=== PATIENT | female | born 1990 | race Caucasian/White ===

== ENCOUNTER 2025-05-07 13:45 | Outpatient (OUT) | payer OTHER, SELFPAY ==
--- NOTE | 2025-05-07 13:57 | US_ITS ---
The [address] [address] Patient Name: SHERLYN OSWALD MRN: [id number] date: 1990 Sex: F Assigned Patient Location: US Current Patient Location: US Accession/Order Number: [id number] Exam Date: 05/07/2025 13:58 Report Date: 05/07/2025 14:50 At the request of: JACK ANDERSON DO Procedure: US OB transvaginal OB ultrasound. Reason for exam:Positive urine test. Comparison:None Technique: Transvaginal imaging of the gravid uterus was obtained. Findings: Gestational sac is seen within the endometrial canal with pole noted measuring 5 mm corresponding to a gestational age of 6 weeks 1 day. No heart rate is identified. MONICO 12/15/2025. A small adjacent subchorionic hemorrhage is present measuring 2.1 cm. Both ovaries are identified and appear unremarkable with a corpus luteum involving the left ovary. US/US OB transvaginal Impression: Gestational sac is seen within the endometrial canal with pole noted measuring 6 weeks 1 day by CRL. MONICO 12/15/2025. No heart rate is identified. Correlation with beta-hCG trend repeat ultrasound is suggested to confirm viability Impression dictated by: Naren Dias Jr., D.O. 05/07/2025 2:50 PM Dictation Location: [place] [address] Electronically authenticated by: [id number] Y Date: 05/07/2025 14:50
== END 2025-05-07 13:46 | disposition home or self-care (01) ==
LOC: US 13:48
PROVIDERS: Visit Provider Obstetrics & Gynecology
DX: Z32.01 Encounter for pregnancy test, result positive (principal); N92.6 Irregular menstruation, unspecified; Z3A.01 Less than 8 weeks gestation of pregnancy
CPT/HCPCS: 76817

== ENCOUNTER 2025-05-15 10:03 | Outpatient (OUT) | payer OTHER, SELFPAY ==
--- OUTSIDE RECORDS SUMMARY | 2025-05-13 14:00 | XMS_ITS | Encounter Summary ---
Author Organization [facility] Address [address] [place] [address] Care Team Providers Care Revenue Inspector Name Role Phone Amadou Millan MD Primary Care Provider [phone] Encounter Details Date Type Department Care Team (Latest Contact Info) Description 05/13/2025 2:00 PM EDT Ancillary Procedure [facility] [address] [place] [address] [place] [address] Missed menses; Positive urine test ([facility] Social History Tobacco Use Types Packs/Day Years Used Date Smoking Tobacco: Never Assessed Comments Unknown Sex and Gender Information Value Date Recorded Sex Assigned at Not on file Legal Sex Female 6:34 PM EDT Gender Identity Not on file Sexual Orientation Not on file documented as of this encounter Plan of Treatment Not on file documented as of this encounter Procedures Procedure Name Priority Date/Time Associated Diagnosis Comments OB TRANSVAGINAL Routine 05/13/2025 3: 10 PM EDT Missed menses Positive urine test ([facility]) documented in this encounter Results * US OB transvaginal (05/13/2025 3:10 PM EDT) Anatomical Region Laterality Modality Body Ultrasound 05/14/2025 12:5 2 PM EDT Impressions 05/14/2025 1:18 PM EDT No evidence of cardiac activity, single pole and gestational sac. Correlate with beta hCG findings, CONCRETE STONE FINISHER consultation. TRANSCRIBED BY: ELECTRONICALLY SIGNED BY: Naren Malik MD Narrative 05/14/2025 1:18 PM EDT FINDINGS: Comparison made with prior examination of May 07, 2025. Persistent intrauterine gestational sac with a limited decidual reaction and a single pole, crown rump length 3 mm which would suggest a 6 week and 0 day gestational age. No cardiac activity however is identified. Overall size demonstrates minimal change from 6 days earlier. Closed internal cervical os and cervix. Bilateral follicular ovaries. No pelvic fluid or mass. Procedure Note Naren Malik MD - 05/14/2025 FINDINGS: Comparison made with prior examination of May 07, 2025. Persistent intrauterine gestational sac with a limited decidual reactionand a single pole, crown rump length 3 mm which would suggest a 6week and 0 day gestational age. No cardiac activity however is identified.Overall size demonstrates minimal change from 6 days earlier. Closed internal cervical os and cervix. Bilateral follicular ovaries. No pelvic fluid or mass. IMPRESSION: No evidence of cardiac activity, single pole and gestational sac.Correlate with beta hCG findings, CONCRETE STONE FINISHER consultation. TRANSCRIBED BY: ELECTRONICALLY SIGNED BY: Naren Malik MD us Mars Jacque DO IMG OB US PROCEDURES Final Resul t documented in this encounter Visit Diagnoses Diagnosis Missed menses Positive urine test ([facility]) documented in this encounter Care Teams Revenue Inspector Relationship Specialty Start Date End Date Amadou Millan MD [address] [place] [address] PCP - General Internal Medicine 05/13/25 documented as of this encounter
--- OUTSIDE RECORDS SUMMARY | 2025-05-15 10:07 | XMS_ITS | Encounter Summary ---
Author Organization [facility] Address [address] [place] [address] Care Team Providers Care Brass Molder Name Role Phone Unavailable Primary Care Provider Unavailabl e Encounter Details Date Type Department Care Team (Late st Contact Info) Description 05/07/2025 Clinisync Result Encounter [facility] Department Unsolicited Jack Santillan DO [address] [place] [address] [place] [address] Social History Tobacco Use Types Packs/Day Years [...] Procedure Name Priority Date/Time Associated Diagnosis Comments US OB TRANSVAGINAL 05/07/2025 2: 50 PM EDT documented in this encounter Results * US OB TRANSVAGINAL (05/07/2025 2:50 PM EDT) Anatomical Region Laterality Modality Other 05/07/2025 2:50 PM EDT Narrative 05/07/2025 2:53 PM EDT The [address] [address] Ultrasound Report Signed Patient: SHERLYN WISE MR#: [id number] : 1990 Acct:[id number] Age/Sex: 34 / F ADM Date: 05/07/25 Loc: US Attending Dr: Jack Santillan D.O. Ordering Physician: Jack Santillan D.O. Date of Service: 05/07/25 Procedure(s): US OB transvaginal Accession Number(s): [id number] cc: Jack Santillan D.O.; Physician,Non-Staff Kadi The [address] [address] Patient Name: SHERLYN WISE MRN: [id number] date: 1990 Sex: F Assigned Patient Location: US Current Patient Location: US Accession/Order Number: [id number] Exam Date: 05/07/2025 13:58 Report Date: 05/07/2025 14:50 At the request of: JACK SANTILLAN DO Procedure: US OB transvaginal OB ultrasound. Reason for exam:Positive urine test. Comparison:None Technique: Transvaginal imaging of the gravid uterus was obtained. Findings: Gestational sac is seen within the endometrial canal with pole noted measuring 5 mm corresponding to a gestational age of 6 weeks 1 day. No heart rate is identified. MONICO 12/15/2025. A small adjacent subchorionic hemorrhage is present measuring 2.1 cm. Both ovaries are identified and appear unremarkable with a corpus luteum involving the left ovary. US/US OB transvaginal Impression: Gestational sac is seen within the endometrial canal with pole noted measuring 6 weeks 1 day by CRL. MONICO 12/15/2025. No heart rate is identified. Correlation with beta-hCG trend repeat ultrasound is suggested to confirm viability Impression dictated by: Naren Dias Jr., D.O. 05/07/2025 2:50 PM Dictation Location: [place] [address] Electronically authenticated by: [id number] Y Date: 05/07/2025 14:50 Dictated By: Naren Dias M.D. Signed By: 05/07/25 1453 DD/ 1450 TD/TT: Lunchroom Supervisor: Procedure Note Radiology, Radiologist, - 05/07/[address] [address] Ultrasound Report Signed Patient: SHERLYN WISEMR#: [id number] : 1990Acct:[id number] Age/Sex: 34 / FADM Date: 05/07/25 Loc: US Attending Dr: Jack Santillan D.O. Ordering Physician: Jack Santillan D.O. Date of Service: 05/07/25 Procedure(s): US OB transvaginal Accession Number(s): [id number] cc: Jack Santillan D.O.; Physician,Non-Staff [place] [id number] Patient Name: SHERLYN WISE MRN: [id number] date: 1990 Sex: F Assigned Patient Location: US Current Patient Location: US Accession/Order Number: [id number] Exam Date: 05/07/2025 13:58 Report Date: 05/07/2025 14:50 At the request of: JACK SANTILLAN DO Procedure: US OB transvaginal OB ultrasound. Reason for exam:Positive urine test. Comparison:None Technique: Transvaginal imaging of the gravid uterus was obtained. Findings: Gestational sac is seen within the endometrial canal with pole noted measuring 5 mm corresponding to a gestational age of 6 weeks 1 day. Nofetal heart rate is identified. MONICO 12/15/2025. A small adjacent subchorionic hemorrhage is present measuring 2.1 cm. Both ovaries are identified and appear unremarkable with a corpus luteum involving the left ovary. US/US OB transvaginal Impression: Gestational sac is seen within the endometrial canal with pole noted measuring 6 weeks 1 day by CRL. MONICO 12/15/2025. No heart rate is identified. Correlation with beta-hCG trend repeat ultrasound issuggested to confirm viability Impression dictated by: Naren Dias Jr., D.O. 05/07/2025 2:50 PM Dictation Location: [place] [address] Electronically authenticated by: [id number] Y Date: 4:50 Dictated By: Naren Dias M.D. Signed By:05/07/25 1453 DD/ 1450 TD/TT: Lunchroom Supervisor: us Jack Jacque DO [facility] Final Result documented in this encounter Visit Diagnoses Not on filedocumented in this encounter
--- OUTSIDE RECORDS SUMMARY | 2025-05-15 10:07 | XMS_ITS | Encounter Summary ---
Author Organization [facility] Address [address] [place] [address] Care Team Providers Care Marketing Development Manager Name Role Phone Unavailable Primary Care Provider Unavailabl e Encounter Details Date Type Department Care Team (Late st Contact Info) Description 05/07/2025 Telephone [facility] [address] [place] [address] Mars Santillan DO [address] [place] [address] [place], [place] [id number] Social History Tobacco Use Types Packs/Day Years Used Date Smoking Tobacco: Never Assessed Comments Unknown Sex and Gender Information Value Date Recorded Sex Assigned at Not on file Legal Sex Female 6:34 PM EDT Gender Identity Not on file Sexual Orientation Not on file documented as of this encounter Miscellaneous Notes * Telephone Encounter - Rebeka Ashford LPN - 05/07/2025 2:37 PM EDT Patient LMP shows patient should be 8 w 2 day ultrasound shows 6 w 2 days. No FHR but pole. We will repeat Ultrasound in 1 week. Patient is aware of orders and scheduling for repeat. documented in this encounter Plan of Treatment Not on file documented as of this encounter Results * US OB transvaginal (05/13/2025 3:10 PM EDT) Anatomical Region Laterality Modality Body Ultrasound 05/14/2025 12:5 2 PM EDT Impressions 05/14/2025 1:18 PM EDT No evidence of cardiac activity, single pole and gestational sac. Correlate with beta hCG findings, PRICER consultation. TRANSCRIBED BY: ELECTRONICALLY SIGNED BY: Naren [...] and gestational sac.Correlate with beta hCG findings, PRICER consultation. TRANSCRIBED BY: ELECTRONICALLY SIGNED BY: Naren Malik MD us Mars Santillan DO [facility] OB US PROCEDURES Final Resul t documented in this encounter Visit Diagnoses Diagnosis Missed menses Positive urine test ([facility]) Missed menses Positive urine test ([facility]) documented in this encounter
--- NOTE | 2025-05-15 10:31 | XR_ITS ---
[address] [address] Patient Name: SHERLYN OSWADL MRN: [id number] date: 1990 Sex: F Assigned Patient Location: [facility] Current Patient Location: [facility] Accession/Order Number: [id number] Exam Date: 05/15/2025 10:43 Report Date: 05/15/2025 11:15 At the request of: JACK ANDERSON DO Procedure: XR chest 2V Chest 2 views CLINICAL HISTORY: Preop exam COMPARISON: None FINDINGS: Heart normal size. Lungs are clear. No free air. XR/XR chest 2V IMPRESSION: NO ACUTE CARDIOPULMONARY ABNORMALITY. Impression dictated by: Vania Ni Jr.OJerson 05/15/2025 11:15 AM Dictation [facility] Electronically authenticated by: [id number] Y Date: 05/15/2025 11:15
--- NOTE | 2025-05-15 10:52 | PM.PRESUREVA ---
History of Present Illness History of Present Illness Chief complaint: MISSED AB Narrative: Ms. Xochitl Wise is a pleasant 34-year-old female who presents for scheduled D&C with suction for missed AB surgery scheduled on 05/18/[address] Mars Santillan Review of Systems ROS Narrative REVIEW OF SYSTEMS: Negative except as stated in HPI, ten or more systems reviewed. Constitutional: No fever, chills, weakness ENT: No sore throat or epistaxis Cardiovascular: No edema, chest pain, palpitations, or activity intolerance Respiratory: No shortness of breath, cough, or wheezing Musculoskeletal: No joint pain or swelling Gastrointestinal: No abdominal pain, constipation, diarrhea, or vomiting Genitourinary: No dysuria or hematuria, reports vaginal spotting Neurological: No numbness, tingling, weakness, or headache Psychiatric: No mood changes PFSH PFSH Medical History (Updated 05/15/25 @ 10:54 by Birdie Cordero) Anxiety ?F41.9 - Anxiety disorder, unspecified (ICD-10) Bronchitis ?J40 - Bronchitis, not specified as acute or chronic (ICD-10) Seasonal allergies ?J30.2 - Other seasonal allergic rhinitis (ICD-10) Heartburn ?R12 - Heartburn (ICD-10) GERD (gastroesophageal reflux disease) ?K21.9 - Gastro-esophageal reflux disease without esophagitis (ICD-10) Surgical History (Updated 05/15/25 @ 10:27 by Birdie Cordero) History of cholecystectomy ?Z90.49 - Acquired absence of other specified parts of digestive tract (ICD-10) Family History (Updated 05/15/25 @ 10:23 by Birdie Cordero) Other Family history of Alzheimer's disease Family history of bone cancer Family history of brain cancer Family history of breast cancer Family history of diabetes mellitus Social History (Updated 05/15/25 @ 10:20 by Birdie Cordero) Within the past year, how often did you have a drink containing alcohol: never Score interpretation: A score less than 3 is consistent with normal alcohol consumption. Do you use any of these nicotine containing products: vaping products Non-prescribed substance use: denies use Previous occupational history: [employer] Highest level of school completed/degree received: high school graduate Meds Home Medications and Allergies Home Medications ?Medication ?Instructions ?Recorded ?Confirmed ?Type No Known Home Medications 05/15/25 05/15/25 History Allergies Allergy/AdvReac Type Severity Reaction Status Date / Time aspirin Allergy Intermediate Anaphylaxis Verified 05/15/25 10:16 Exam Narrative Exam Narrative: Constitutional: Awake, alert, comfortable, well-appearing, nontoxic, interactive, vital signs as charted Head: Normocephalic, atraumatic Eyes: Conjunctiva and lids normal to inspection, pupils normal ENT: Tympanic membranes pearly denton, nonerythematous, noninjected, naris patent, posterior oropharynx clear, oral mucosa moist Neck: Supple, normal appearance, normal range of motion, no meningeal signs, no lymphadenopathy Respiratory: No respiratory distress, breath sounds clear Cardiovascular: Regular rate and rhythm, strong and regular heart tones Abdomen: Nontender, normal bowel sounds, soft, no CVA tenderness Musculoskeletal: Normal gait, no swelling or edema Skin: No rashes or induration, no lesions, only visible skin inspected Neuro: No neurological deficits, normal sensation Psychiatric: Oriented ?3, normal affect Assessment and Plan Assessment and Plan (1) Missed : Plan Suction D&C scheduled 05/18/[address] Mars Santillan
== END 2025-05-15 10:04 | disposition home or self-care (01) ==
LOC: PST 10:05
PROVIDERS: Visit Provider Obstetrics & Gynecology
DX: Z01.810 Encounter for preprocedural cardiovascular examination (principal); Z01.812 Encounter for preprocedural laboratory examination; Z01.818 Encounter for other preprocedural examination; O02.1 Missed abortion
CPT/HCPCS: 36415; 71046; 86850; 86900; 86901; G0463

== ENCOUNTER 2025-05-17 13:46 | Emergency (ER) | payer OTHER, SELFPAY ==
--- OUTSIDE RECORDS SUMMARY | 2009-08-24 19:37 | XMS_ITS | Encounter Summary ---
Author Organization [facility] Address [address], [address] [place] [address] Care Team Providers Care Educational Manager Name Role Phone Unavailable Primary Care Provider Unavailabl e Encounter Details Date Type Department Care Team (Late st Contact Info) Description 08/24/2009 6:37 PM [facility] Hospital Encounter [facility] Department [address] [place] [address] Social History Tobacco Use Types Packs/Day Years Used Date Smoking Tobacco: Never Smokeless Tobacco: Never Alcohol Use Standard Drinks/Week Comments No 0 (1 standard drink = 0.6 oz pur e alcohol) AUDIT-C Answer Date Recorded Q1: How often do you have a drink containing alcohol? Never 07/22/2024 Q2: How many drinks containi ng alcohol do you have on a typical day when you are drinking? Patient does not drink Q3: How often do you have si x or more drinks on one occasion? Never 07/22/2024 Overall Financial Resource Strain (CARDIA) Answe r Date Recorded How hard is it for you to pa y for the very basics like food, housing, medical care, and heating? Not hard at all 01/02/2023 PHQ-2 Answer Date Recorded PHQ-9 Total Score 0 03/27/2025 PRAPARE - Transportation Answer Date Re corded Lack of Transportation (Medical) Not on file 01/02/2023 In the past 12 months, has l ack of transportation kept you from meetings, work, or from getting things needed for daily living? No 01/02/2023 Housing Stability Vital Sign Answer Durga e Recorded Unable to Pay for Housing in the Last Year Not o n file 01/02/2023 Number of Places Lived in the Last Year Not on f ile 01/02/2023 In the last 12 months, was t here a time when you did not have a steady place to sleep or slept in a care home (including now)? No 01/02/2023 Housing Stability Vital Sign Answer Durga e Recorded In the last 12 months, was t here a time when you were not able to pay the mortgage or rent on time? No 03/27/2025 In the past 12 months, how m any times have you moved where you were living? 0 03/27/2025 At any time in the past 12 m [facility], were you homeless or living in a care home (including now)? No 03/27/2025 Hunger Vital Sign Answer Date Recorded Within the past 12 months, y ou worried that your food would run out before you got the money to buy more. Never true 03/27/20 25 Within the past 12 months, t he food you bought just didn't last and you didn't have money to get more. Never true 03/27/2025 PRAPARE - Transportation Answer Date Re corded In the past 12 months, has l ack of transportation kept you from medical appointments or from getting medications? No 02/28 In the past 12 months, has l ack of transportation kept you from meetings, work, or from getting things needed for daily living? No 03/27/2025 [facility] Utilities Answer Date Recorded In the past 12 months has th e electric, gas, oil, or water company threatened to shut off services in your home? No 03/27/2025 Interpersonal Safety Domain Source: IP Abuse Scr eening Answer Date Recorded Physical abuse Denies 07/22/2024 Verbal abuse Denies 07/22/2024 Emotional abuse Denies 07/22/2024 Financial abuse Denies 07/22/2024 Sexual abuse Denies 07/22/2024 Education Answer Date Recorded What is the highest level of school you have completed or the highest degree you have received? High school graduate 09/28/2020 Comments No Sex and Gender Information Value Date Recorded Sex Assigned at Not on file Legal Sex Female 10:09 AM EST Gender Identity Not on file Sexual Orientation Not on file COVID-19 Exposure Response Date Recorded In the last 10 days, have yo u been in contact with someone who was confirmed or suspected to have Coronavirus/COVID-19? No / Unsure 03/20/2022 4:13 PM EDT documented as of this encounter Functional Status documented as of this encounter Plan of Treatment Not on file documented as of this encounter Visit Diagnoses Not on filedocumented in this encounter Additional Health Concerns Infection Onset Date Last Indicated Resolved Time COVID-19 (Rule Out) 06/23/2020 06/23/2020 06/26/20 20 1:06 AM EST COVID-19 06/23/2020 06/23/2020 07/07/2020 9:29 PM EST documented as of this encounter
--- OUTSIDE RECORDS SUMMARY | 2015-03-25 09:45 | XMS_ITS | Encounter Summary ---
Author Organization [facility] Address [address], [address] [place] [address] Care Team Providers Care Design Draftsman Name Role Phone Unavailable Primary Care Provider Unavailabl e Encounter Details Date Type Department Care Team (Late st Contact Info) Description 03/25/2015 9:45 AM EDT Hospital Encounter [facility] Physical Therapy [address] [place] [address] Teddy Mcdaniels MD [address], [place] [address] Raine Slade, PT Social History Tobacco Use Types Packs/Day Years [...] place to sleep or slept in a penitentiary (including now)? No 01/02/2023 Housing Stability Vital Sign Answer Durga e Recorded In the last 12 months, was t here a time when you were not able to pay the mortgage or rent on time? No 03/27/2025 In the past 12 months, how m any times have you moved where you were living? 0 03/27/2025 At any time in the past 12 m [facility], were you homeless or living in a penitentiary (including now)? No 03/27/2025 Hunger Vital Sign [...] things needed for daily living? No 03/27/2025 [facility] Utilities Answer Date Recorded In the [...]
--- OUTSIDE RECORDS SUMMARY | 2025-05-13 14:00 | XMS_ITS | Encounter Summary ---
Author Organization [facility] Address [address] [place] [address] Care Team Providers Care Turning Machine Operator Helper Name Role Phone Amadou Millan MD Primary Care Provider [phone] Encounter Details Date Type Department Care Team (Latest Contact Info) Description 05/13/2025 2:00 PM EDT Ancillary Procedure [facility] [address] [place] [address] [place] [address] Missed menses; Positive urine test ([facility]) Social History Tobacco Use Types Packs/Day Years [...] PM EDT Missed menses Positive urine test ([facility]) documented in this encounter Results * US OB transvaginal (05/13/2025 3:10 PM EDT) Anatomical Region Laterality Modality Body Ultrasound 05/14/2025 12:5 2 PM EDT Impressions 05/14/2025 1:18 PM EDT No evidence of cardiac activity, single pole and gestational sac. Correlate with beta hCG findings, MACHINE CRATER consultation. TRANSCRIBED BY: ELECTRONICALLY SIGNED BY: Naren [...] and gestational sac.Correlate with beta hCG findings, MACHINE CRATER consultation. TRANSCRIBED BY: ELECTRONICALLY SIGNED BY: Naren Malik MD us Mars Jacque DO IMG OB US PROCEDURES Final Resul t documented in this encounter Visit Diagnoses Diagnosis Missed menses Positive urine test ([facility]) documented in this encounter Care Teams Turning Machine Operator Helper Relationship Specialty Start Date End Date Amadou Millan MD [address] [place] [address] PCP - General Internal Medicine 05/13/25 documented as of this encounter
--- OUTSIDE RECORDS SUMMARY | 2025-05-17 13:54 | XMS_ITS | Clinical Summary ---
Author Organization [facility] Address [address] [place] [address] Care Team Providers Care Deburrer Strip Name Role Phone Amadou Millan MD Primary Care Provider [phone] Allergies Active Allergy Reactions Criticality Noted Date Comments Aspirin Other 05/13/2025 Encounters Date Type Department Care Team Description 05/13/2025 2:00 PM EDT Ancillary Procedure [facility] [address] [place] [address] Missed menses; Positive urine test ([facility]) 05/07/2025 Clinisync Result Encounter [facility] External Department Unsolicited Jack Santillan DO 05/07/2025 Telephone [facility] [address] [place] [address] Jack Santillan DO from Last 3 Months Social History Tobacco Use Types Packs/Day Years Used Date Smoking Tobacco: Never Assessed Comments Unknown Sex and Gender Information Value Date Recorded Sex Assigned at Not on file Legal Sex Female 6:34 PM EDT Gender Identity Not on file Sexual Orientation Not on file Plan of Treatment Not on file Procedures Procedure Name Priority Date/Time Associated Diagnosis Comments US OB TRANSVAGINAL Routine 05/13/2025 3: 10 PM EDT Missed menses Positive urine test ([facility]) US OB TRANSVAGINAL 05/07/2025 2: 50 PM EDT from Last 3 Months Results * US OB transvaginal (05/13/2025 3:10 PM EDT) Anatomical Region Laterality Modality Body Ultrasound 05/14/2025 12:5 2 PM EDT Impressions 05/14/2025 1:18 PM EDT No evidence of cardiac activity, single pole and gestational sac. Correlate with beta hCG findings, CIRCULAR DISTRIBUTOR consultation. TRANSCRIBED BY: ELECTRONICALLY SIGNED BY: Naren [...] and gestational sac.Correlate with beta hCG findings, CIRCULAR DISTRIBUTOR consultation. TRANSCRIBED BY: ELECTRONICALLY SIGNED BY: Naren Malik MD us Jack Santillan DO IMG OB US PROCEDURES Final Resul t * US OB TRANSVAGINAL (05/07/2025 2:50 PM EDT) Anatomical Region Laterality Modality Other 05/07/2025 2:50 PM EDT Narrative 05/07/2025 2:53 [place] [address] Ultrasound Report Signed Patient: SHERLYN WISE MR#: [id number] : 1990 Acct:[id number] Age/Sex: 34 / F ADM Date: 05/07/25 Loc: US Attending Dr: Jack Santillan D.O. Ordering Physician: Jack Santillan D.O. Date of Service: 05/07/25 Procedure(s): US OB transvaginal Accession Number(s): [id number] cc: Jack Santillan D.O.; Physician,Non-Staff Kadi The [address] [address] Patient Name: SHERLYN WISE MRN: [id number] date: 1990 Sex: F Assigned Patient Location: US Current Patient Location: US Accession/Order Number: [id number] Exam Date: 05/07/2025 13:58 Report Date: 05/07/2025 [...] Jr., D.O. 05/07/2025 2:50 PM Dictation Location: [place] [address] Electronically authenticated by: [id number] Y Date: 05/07/2025 14:50 Dictated By: Naren Dias M.D. Signed By: 05/07/25 1453 DD/ 145 TD/TT: Adjunct Phlebotomy Instructor: Procedure Note Radiology, Radiologist, - 05/07/[address] [address] Ultrasound Report Signed Patient: SHERLYN WISEMR#: [id number] : 1990Acct:[id number] Age/Sex: 34 / FADM Date: 05/07/25 Loc: US Attending Dr: Jack Santillan D.O. Ordering Physician: Jack Santillan D.O. Date of Service: 05/07/25 Procedure(s): US OB transvaginal Accession Number(s): [id number] cc: Jack Santillan D.O.; Physician,Non-Staff MKerri [place] [id number] Patient Name: SHERLYN WISE MRN: [id number] date: 1990 Sex: F Assigned Patient Location: US Current Patient Location: US Accession/Order Number: [id number] Exam Date: 05/07/2025 13:58 Report Date: 05/07/2025 [...] Jr., D.O. 05/07/2025 2:50 PM Dictation Location: [place] [address] Electronically authenticated by: [id number] Y Date: 4:50 Dictated By: Naren Dias M.D. Signed By:05/07/25 1453 DD/ 1450 TD/TT: Adjunct Phlebotomy Instructor: Jack Santillan DO [facility] Final Result from Last 3 Months Insurance [employer] MEDICA[employer] Care Teams Deburrer Strip Relationship Specialty Start Date End Date Amadou Millan MD [address] [place] [address] PCP - General Internal Medicine 05/13/25
--- OUTSIDE RECORDS SUMMARY | 2025-05-17 13:54 | XMS_ITS | Clinical Summary ---
Author Organization [facility] Address [address], [address] [place] [address] Care Team Providers Care Cargo Agent Name Role Phone Amadou Millan MD Primary Care Provider [phone] Allergies Active Allergy Reactions Criticality Noted Date Comments Aspirin Other (See Comments) 12/23/2016 States mother has severe reaction to aspirin so she has avoided it herself. Medications topiramate (TOPAMAX) 25 MG tabletIndication s:Migraine without aura and without status migrainosus, not intractable Take 1 tablet by mouth nightly 60 tablet 3 5 Active butalbital-aceta minophen-caffein e (FIORICET, ESGIC) 50-325-40 MG per tabletIndication s:Migraine without aura and without status migrainosus, not intractable Take 1 tablet by mouth every 6 hours as needed for Headaches 60 tablet 3 5 Active busPIRone (BUSPAR) 7.5 MG tabletIndication s:Anxiety TAKE 1 TABLET BY MOUTH TWICE DAILY 180 tablet 1 5 Active Active Problems Problem Noted Date Diagnosed Date Anxiety disorder 01/27/2021 Cholecystitis with cholelithiasis Encounters Date Type Department Care Team Description 04/07/2025 Refill [facility] [address] [place] [address] Amadou Millan MD Medication Refill 03/27/2025 11:30 AM EDT Office Visit [facility] [address] [place] [address] Amadou Millan MD Migraine without aura and without status migrainosus, not intractable (Primary Dx) 03/27/2025 Abstract [facility] Care [address] [place] [address] Amadou Millan MD from Last 3 Months Immunizations Immunization Administration Dates Next Due TDaP, ADACEL (age 10y-64y), BOOSTRIX (age 10y+), IM, 0.5mL 02/24/2012 Family History Medical History Relation Name Comments No Known Problems Father Other Maternal Aunt FACTOR FIVE Other Maternal Grandmother FACTOR 12 Other Maternal Great Grandmother F ACTOR SEVEN No Known Problems Mother Other Other Great Great Grandma FACTOR N INE Relation Name Status Comments Father Alive Maternal Aunt Maternal Grandmother Maternal Great Grandmother Mother Alive Other Great Great Grandma Social History Tobacco Use Types Packs/Day Years Used Date Smoking Tobacco: Never Smokeless Tobacco: Never Tobacco Cessation:Counseling Given: Not Answered Alcohol Use Standard Drinks/Week Comments No 0 [...] place to sleep or slept in a snf (including now)? No 01/02/2023 Housing Stability Vital Sign Answer Durga e Recorded In the last 12 months, was t here a time when you were not able to pay the mortgage or rent on time? No 03/27/2025 In the past 12 months, how m any times have you moved where you were living? 0 03/27/2025 At any time in the past 12 m [facility], were you homeless or living in a snf (including now)? No 03/27/2025 Hunger Vital Sign [...] things needed for daily living? No 03/27/2025 [facility] Utilities Answer Date Recorded In [...] on file Sexual Orientation Not on file Last Filed Vital Signs Vital Sign Reading Time Taken Comments Blood Pressure 112/77 03/27/2025 11:23 AM EDT Pulse 88 03/27/2025 11:23 AM EDT Temperature 36.9 C (98.5 F) 07/22/2024 1:54 AM EST Respiratory Rate 18 03/27/2025 11:23 AM EDT Oxygen Saturation 99% 03/27/2025 11:23 AM EDT Inhaled Oxygen Concentration - - Weight 99.9 kg (220 lb 4.8 oz) 07/22/2024 1:54 A M EST Height 160 cm (5' 3 ) 03/27/2025 11:23 AM EDT Body Mass Index 39.02 07/22/2024 1:54 AM EST Plan of Treatment Health Maintenance Due Date Last Done Comments HIV screen 2006 Hepatitis C screen 2009 Hepatitis B vaccine (1 of 3 - 19+ 3-dose series) 2010 Pap smear 2012 Cervical cancer screen 2021 HPV (without or with Pap) 2021 DTaP/Tdap/Td vaccine (2 - Td or Tdap) 02/23/2022 02/24/2012 Flu vaccine (#1) 02/27/2025 COVID-19 Vaccine (1 - 2023-2 5 season) 2025 Depression Screen 03/27/2026 03/27/2025, 03/27/2025 HPV vaccine (No Doses Required) Completed Hepatitis A vaccine Aged Out No longe r eligible based on patient's age to complete this topic Hib vaccine Aged Out No longer eligi ble based on patient's age to complete this topic Meningococcal (ACWY) vaccine Aged Out No longer eligible based on patient's age to complete this topic Meningococcal B vaccine Aged Out No l onger eligible based on patient's age to complete this topic Pneumococcal 0-49 years Vaccine Aged Out No longer eligible based on patient's age to complete this topic Polio vaccine Aged Out No longer elig ible based on patient's age to complete this topic Varicella vaccine Discontinued Medical Devices Implanted Type Area Brick Or Block Maker Device Identifier Shelf Expiration Date Model / Serial / Lot Santosh Hem-O-Coral Implanted:Qty: 1 on 01/08/2019 by Chad Felix MD at [facility] 12/24/2022 [id number] / / [id number] Insurance [employer] Member Subscriber Plan / Payer ( fective 2016-Present) Name:Xochitl Wise Relation to Subscriber:Self Name:Xochitl Wise Payer ID:[id number] (NAIC) Group ID:Not on file Type:Not on file Address: [place] [phone] Advance Directives * Full Code (Latest Code Status on File) Date Activated Date Inactivated Comments 01/08/2019 12:37 PM 01/08/2019 5:52 PM * Full Code Date Activated Date Inactivated Comments 01/08/2019 8:53 AM 01/08/2019 12:37 PM Care Teams Cargo Agent Relationship Specialty Start Date End Date Amadou Millan MD [address] [place] [address] PCP - General Internal Medicine 09/28/20
--- OUTSIDE RECORDS SUMMARY | 2025-05-17 13:54 | XMS_ITS | Encounter Summary ---
Author Organization [facility] Address [address] [place] [address] Care Team Providers Care Metal Mold Dresser Name Role Phone Unavailable Primary Care Provider Unavailabl e Encounter Details Date Type Department Care Team (Late st Contact Info) Description 05/07/2025 Telephone [facility] [address] [place] [address] Mars Santillan DO [address] [place], [place] [id number] Social History Tobacco Use Types Packs/Day Years [...] gestational sac. Correlate with beta hCG findings, SALON DESIGNER consultation. TRANSCRIBED BY: ELECTRONICALLY SIGNED BY: Naren [...] and gestational sac.Correlate with beta hCG findings, SALON DESIGNER consultation. TRANSCRIBED BY: ELECTRONICALLY SIGNED BY: Naren Malik MD us Mars Santillan DO [facility] OB US PROCEDURES Final Resul t documented in this encounter Visit Diagnoses Diagnosis Missed menses Positive urine test ([facility]) Missed menses Positive urine test ([facility]) documented in this encounter
[2025-05-17 13:55] VITALS: BP 143/76; PULSE 84; TEMP 36.9; O2SAT 98; BMI 34.4
--- NOTE | 2025-05-17 14:11 | ED_ITS ---
HPI HPI - General Adult General Chief complaint: OB/Uterine Contractions Stated complaint: VAGINAL BLEED Time Seen by Provider: 05/17/25 14:08 Source: patient Mode of arrival: walk-in History of Present Illness HPI narrative: 34-year-old female presents to the emergency department for vaginal bleeding. She found out last week she is having a miscarriage and she is scheduled for D&C tomorrow. The bleeding became heavier today and she was passing some clots so she came in. She has some abdominal cramping. No fever. Related Data Home Medications ?Medication ?Instructions ?Recorded ?Confirmed No Known Home Medications 05/15/2504/29 Allergies Allergy/AdvReac Type Severity Reaction Status Date / Time aspirin Allergy Intermediate Anaphylaxis Verified 05/15/25 10:16 Review of Systems ROS Narrative A ten point review of systems is negative except as noted above. PFSH PFS Medical History (Updated 05/17/25 @ 17:49 by Yoan English MD) Anxiety ?F41.9 - Anxiety disorder, unspecified (ICD-10) Bronchitis ?J40 - Bronchitis, not specified as acute or chronic (ICD-10) Seasonal allergies ?J30.2 - Other seasonal allergic rhinitis (ICD-10) Heartburn ?R12 - Heartburn (ICD-10) GERD (gastroesophageal reflux disease) ?K21.9 - Gastro-esophageal reflux disease without esophagitis (ICD-10) Surgical History (Updated 05/15/25 @ 10:27 by Birdie Cordero) History of cholecystectomy ?Z90.49 - Acquired absence of other specified parts of digestive tract (ICD- 10) Family History (Updated 05/15/25 @ 10:23 by Birdie Cordero) Other Family history of Alzheimer's disease Family history of bone cancer Family history of brain cancer Family history of breast cancer Family history of diabetes mellitus Social History (Updated 05/15/25 @ 10:20 by Birdie Cordero) Within the past year, how often did you have a drink containing alcohol: never Score interpretation: A score less than 3 is consistent with normal alcohol consumption. Do you use any of these nicotine containing products: vaping products Non-prescribed substance use: denies use Previous occupational history: [employer] Highest level of school completed/degree received: high school graduate Little interest or pleasure in doing things: not at all Feeling down, depressed, or hopeless: not at all Exam Narrative Exam Narrative: Nurses note and vital signs reviewed General:The patient appears well and in no apparent distress. Skin:Warm, dry, no pallor noted.There is no rash noted. Head:Normocephalic, atraumatic Eye: Normal conjunctiva, no drainage Ears, Nose, Mouth, and Throat: oral mucosa is moist. Nares patent. Cardiovascular:Regular Rate and Rhythm Respiratory:Patient is in no distress, no accessory muscle use, lungs are clear to auscultation, no wheezing, rales or rhonchi Back:non-tender GI: Tenderness across the lower abdomen Musculoskeletal: The patient has no evidence of calf tenderness, no pitting edema, symmetrical pulses noted bilaterally Neurological:A&O, normal speech Psychiatric:Cooperative Constitutional Vital Signs, click to edit/add: Last Vital Signs Temp 98.5 F 05/17/25 13:55 Pulse 84 05/17/25 13:55 Resp 16 05/17/25 13:55 BP 143/76 H 05/17/25 13:55 Pulse Ox 98 05/17/25 13:55 O2 Del Method Room Air 05/17/25 13:55 Course Vital Signs Vital signs: Vital Signs Temperature 98.5 F 05/17/25 13:55 Pulse Rate 84 05/17/25 13:55 Respiratory Rate 16 05/17/25 13:55 Blood Pressure 143/76 H 05/17/25 13:55 Pulse Oximetry 98 05/17/25 13:55 Oxygen Delivery Method Room Air 05/17/25 13:55 Temperature 98.5 F 05/17/25 13:55 Pulse Rate 84 05/17/25 13:55 Respiratory Rate 16 05/17/25 13:55 Blood Pressure 143/76 H 05/17/25 13:55 Pulse Oximetry 98 05/17/25 13:55 Oxygen Delivery Method Room Air 05/17/25 13:55 Medical Decision Making MDM Narrative Medical decision making narrative: The patient has a hemoglobin of 10.1 and ultrasound shows some retained products of conception in the endometrial canal. Discussed with Dr. Santillan. The patient was given the option of D&C tomorrow versus allowing everything to pass and she prefers to have a D&C tomorrow. Should be discharged home. Treatment diagnosis and follow-up were discussed with the patient. Differential Diagnosis Differential Diagnosis: Incomplete miscarriage, complete miscarriage Lab Data Lab results reviewed: Yes I reviewed the patient's lab results Labs: Lab Results 05/17/25 Range/Units 14:15 WBC 13.6 H (4.0-11.0) 10^3/uL RBC 4.11 L (4.20-5.40) 10^6/uL Hgb 10.1 L (12.0-16.0) g/dL Hct 32.1 L (36.0-48.0) % MCV 78.1 L (81.0-99.0) fL MCH 24.6 L (26.7-34.0) pg MCHC 31.5 (29.9-35.2) g/dL RDW 16.4 H (11.0-15.0) % Plt Count 338 (150-450) 10^3/uL MPV 9.8 (9.5-13.5) fL Neut % (Auto) 81.0 H (43.0-75.0) % Lymph % (Auto) 14.7 L (20.5-60.0) % [place] % (Auto) 3.1 (1.7-12.0) % Eos % (Auto) 0.4 L (0.9-7.0) % Baso % (Auto) 0.6 (0.2-2.0) % Neut # (Auto) 11.0 H (1.4-6.5) 10^3/uL Lymph # (Auto) 2.0 (1.2-3.8) 10^3/uL [place] # (Auto) 0.4 (0.3-0.8) 10^3/uL Eos # (Auto) 0.1 (0.0-0.7) 10^3/uL Baso # (Auto) 0.1 (0.0-0.1) 10^3/uL Abs Immat Gran (auto) 0.03 (0.00-0.03) 10^3/uL Imm/Tot Granulo (auto) 0.2 (0.0-0.5) % Sodium 141 (136-145) mmol/L Potassium 3.4 L (3.5-5.1) mmol/L Chloride 107 (98-107) mmol/L Carbon Dioxide 22.0 (21.0-32.0) mmol/L Anion Gap 15.4 BUN 8.0 (7.0-18.0) mg/dL Creatinine 0.77 (0.55-1.02) mg/dL Est GFR ( Amer) >60 (>=60 mL/min/1.73m^2) Est GFR (Non-Af Amer) >60 (>=60 mL/min/1.73m^2) BUN/Creatinine Ratio 10.4 Glucose 122 H (74-106) mg/dL Calcium 8.6 (8.5-10.1) mg/dL Discharge Plan Discharge Chief Complaint: OB/Uterine Contractions Clinical Impression: Incomplete miscarriage Patient Disposition: Home, Self-Care Time of Disposition Decision: 17:49 Condition: Good Mode of Transportation: Private Vehicle Prescriptions / Home Meds: No Action No Known Home Medications Print Language: Ukrainian Instructions: Miscarriage (ED), Dilation and Curettage (DC) Referrals: DAVID RASHID MD [Primary Care Provider] - 1 week
[2025-05-17 14:27] LABS: Hematocrit 32.1 % (36.0-48.0); Hemoglobin 10.1 g/dL (12.0-16.0); Immature Granulocytes Abs Auto 0.03 10^3/uL (0.00-0.03); Immature Granulocytes Pct Auto 0.2 % (0.0-0.5); Lymphocytes Absolute Auto 2.0 10^3/uL (1.2-3.8); Mean Corpuscular HGB Conc 31.5 g/dL (29.9-35.2); Mean Corpuscular Hemoglobin 24.6 pg (26.7-34.0); Mean Corpuscular Volume 78.1 fL (81.0-99.0); Platelet Count 338 10^3/uL (150-450); Red Blood Count 4.11 10^6/uL (4.20-5.40); White Blood Count 13.6 10^3/uL (4.0-11.0)
[2025-05-17 14:37] LABS: Anion Gap 15.4; Blood Urea Nitrogen 8.0 mg/dL (7.0-18.0); Calcium 8.6 mg/dL (8.5-10.1); Carbon Dioxide 22.0 mmol/L (21.0-32.0); Chloride 107 mmol/L (98-107); Estimated GFR (African America >60 (>=60 mL/min/1.73m^2); Estimated GFR (Non-African Ame >60 (>=60 mL/min/1.73m^2); Glucose 122 mg/dL (74-106); Potassium 3.4 mmol/L (3.5-5.1); Sodium 141 mmol/L (136-145)
--- NOTE | 2025-05-17 15:17 | US_ITS ---
The [address] [address] Patient Name: SHERLYN OSWALD MRN: [id number] date: 1990 Sex: F Assigned Patient Location: ER Current Patient Location: ER Accession/Order Number: [id number] Exam Date: 05/17/2025 16:08 Report Date: 05/17/2025 17:19 At the request of: PRUDENCE NEAL MD Procedure: US OB transvaginal EXAMINATION TYPE: US OB transvaginal Grayscale, color scale Doppler, vascular duplex analysis of the bilateral ovaries DATE OF EXAM ORDERED: 05/17/2025 4:43 PM HISTORY: Miscarriage, bleeding, r/o retained products, COMPARISON: NONE TECHNIQUE: Realtime Transvaginal imaging was performed. Transvaginal imaging was utilized to better evaluate the ovaries and the endometrial stripe. Grayscale, color scale Doppler, vascular duplex analysis of the bilateral ovaries was performed to assess blood flow. FINDINGS: The cervix measures 3 cm in length. Endometrium:The endometrium measures 1.3 cm in thickness with an anechoic structure measuring 0.5 x 0.3 x 0.6 cm within the endometrial canal. Ovaries: There is a suspected corpus luteum cyst within the left ovary measuring 1.4 x 1.0 x 1.4 cm. Adjacent anechoic structures are noted along the left adnexa with the largest measuring 1.9 x 1.1 x 1.6 cm in greatest dimension possibly representing exophytic follicles. Right Ovary measurements: 3.3 x 2.2 x 2.3 cm Left Ovary measurements: 2.4 x 2.6 x 2.9 cm No abnormal adnexal mass is seen. No free fluid in the pelvic cul-de-sac. Vascular duplex analysis of the bilateral ovaries demonstrates normal blood flow without evidence of ovarian ischemia. US/US OB transvaginal IMPRESSION: The endometrium measures 1.3 cm in thickness with an anechoic structure measuring 0.5 x 0.3 x 0.6 cm within the endometrial canal. This presumably represents retained products of conception. There is a suspected corpus luteum cyst within the left ovary measuring 1.4 x 1.0 x 1.4 cm. Adjacent anechoic structures are noted along the left adnexa with the largest measuring 1.9 x 1.1 x 1.6 cm in greatest dimension possibly representing exophytic follicles. No evidence of ovarian ischemia. Impression dictated by: Aris Gillespie M.D. 05/17/2025 5:19 PM Dictation Location: [place] [address] Electronically authenticated by: [id number] Y Date: 05/17/2025 17:19
[2025-05-17 17:59] VITALS: BP 132/78; PULSE 78; O2SAT 100
== END 2025-05-17 18:00 | disposition home or self-care (01) ==
PROVIDERS: Emergency Provider Emergency Medicine; PCP Internal Medicine
DX: O03.4 Incomplete spontaneous abortion without complication (principal); F17.290 Nicotine dependence, other tobacco product, uncomplicated
CPT/HCPCS: 36415; 76817; 80048; 84702; 85025; 99284

== ENCOUNTER 2025-05-18 06:14 | Day surgery (SDC) | payer OTHER, SELFPAY ==
[2025-05-15 10:20] VITALS: BP 139/86; PULSE 62; TEMP 36.3; O2SAT 100; BMI 36.1
[2025-05-18 06:23] LABS: Hematocrit 31.3 % (36.0-48.0); Hemoglobin 9.6 g/dL (12.0-16.0); Immature Granulocytes Abs Auto 0.02 10^3/uL (0.00-0.03); Immature Granulocytes Pct Auto 0.2 % (0.0-0.5); Lymphocytes Absolute Auto 3.8 10^3/uL (1.2-3.8); Mean Corpuscular HGB Conc 30.7 g/dL (29.9-35.2); Mean Corpuscular Hemoglobin 24.2 pg (26.7-34.0); Mean Corpuscular Volume 79.0 fL (81.0-99.0); Platelet Count 395 10^3/uL (150-450); Red Blood Count 3.96 10^6/uL (4.20-5.40); White Blood Count 10.7 10^3/uL (4.0-11.0)
[2025-05-18 06:40] VITALS: BP 126/76; PULSE 62; TEMP 36.4; O2SAT 98; BMI 35.5
--- NOTE | 2025-05-18 07:56 | PC.NURSE ---
Dr. Santillan aware that Type and Screen was drawn on Sunday and was sent out on Sunday to [facility]. He is aware that the results are not back, as of yet. reports his plan is to proceed with procedure.
--- NOTE | 2025-05-18 08:13 | PC.NURSE ---
Denise from lab called. States she ran a relfex tube and it shows A positive with no antibodies. Reported to Dr. Santillan.
--- NOTE | 2025-05-18 08:31 | P.ON_ITS ---
Brief Operative Note Date of procedure: 05/18/25 Pre-op diagnosis general: missed Post-op diagnosis: same as pre-op Procedure: NAME OF PROCEDURE: [D&C suction ] PROCEDURE: The patient was taken back to the OR where she was given general anesthesia without difficulty. She was then placed in dorsal lithotomy position, prepped and draped in the normal sterile fashion. A weighted speculum was placed in the patient's vagina and the anterior lip of the cervix was identified and grasped with a single-tooth tenaculum. The patient was then gently dilated using Hegar dilators after we had sounded roughly to 12 cm. The suction curette was then tested. The suction curette was then placed in the patient's uterus and products of conception were removed using an 10-Indonesian suction curette. ?Excellent hemostasis was noted. The patient tolerated the procedure well. Sponge, lap, and needle counts were correct x 2. All instruments were then removed from the patient's vagina. The patient was taken to the Recovery Room in stable conditio n. ?? Anesthesia: GETA Surgeon: Mars Santillan Estimated blood loss (mL): 5 Pathology: other (poc) Condition: stable Disposition: PACU
[2025-05-18 08:36] VITALS: BP 108/16; PULSE 70; TEMP 36.7; O2SAT 92
[2025-05-18 08:51] VITALS: BP 115/72; PULSE 55; O2SAT 97
[2025-05-18 09:06] VITALS: BP 115/72; PULSE 55; O2SAT 97
[2025-05-18 09:36] VITALS: BP 121/45; PULSE 57; O2SAT 100
--- NOTE | 2025-05-18 09:37 | PC.NURSE ---
Patient stable and talking with spouse sitting beside her and is on her phone messaging friends.
[2025-05-18 10:06] VITALS: BP 114/66; PULSE 63; TEMP 36.6; O2SAT 99
== END 2025-05-18 10:06 | disposition home or self-care (01) ==
PROVIDERS: PCP Internal Medicine; Visit Provider Obstetrics & Gynecology
PROC: (CPT 1965; principal; 2025-05-18 07:30)
DX: O02.1 Missed abortion (principal); Z90.49 Acquired absence of other specified parts of digestive tract; F17.290 Nicotine dependence, other tobacco product, uncomplicated; K21.9 Gastro-esophageal reflux disease without esophagitis; F41.9 Anxiety disorder, unspecified
CPT/HCPCS: 59820; 36415; 84702; 85025; 88305; J0131; J2250; J2405; J2704; J3010

== ENCOUNTER 2025-06-01 14:52 | Outpatient (OUT) | payer OTHER, SELFPAY ==
--- OUTSIDE RECORDS SUMMARY | 2025-06-01 14:20 | XMS_ITS | Encounter Summary ---
Author Organization [facility] Address [address] [facility] [email or web address]] [place] [address] Care Team Providers Care Residential Program Director Name Role Phone Amadou Millan MD Primary Care Provider Reason for Visit * ReasonCommentsPost-op VisitPt present today for a post operative visit. Pt had a D&C (miscarriage) on 05/18/2025. Encounter Details DateTypeDepartmentCare Team (Latest Contact Info)Ialpbnkqfar84/03/2025 2:20 PM ESTOffice Visit [facility] [address] [address] Cher Madrigal PA [address] [place], [place] [id number] Postoperative visit; S/P D&C (status post dilation and curettage); Miscarriage ([facility]) Social History Tobacco UseTypesPacks/DayYears UsedDateSmoking Tobacco: Never Assessed CommentsNoSex and Gender InformationValueDate RecordedSex Assigned at BirthNot on fileLegal FjvQlluky82/15/2023 6:34 PM EDTGender IdentityNot on fileSexual OrientationNot on filedocumented as of this encounter Last Filed Vital Signs Vital SignReadingTime TakenCommentsBlood Dsgzxgow057/7206/01/2025 2:16 PM EST Pulse--Temperature--Respiratory Rate--Oxygen Saturation--Inhaled Oxygen Concentration--Xzplqh22.3 kg (199 lb)06/01/2025 2:16 PM ESTHeight--Body Mass Index--documented in this encounter Plan of Treatment Not on file documented as of this encounter Visit Diagnoses Diagnosis Postoperative visit S/P D&C (status post dilation and curettage) Other postprocedural status Miscarriage ([facility]) Unspecified spontaneous without mention of complication documented in this encounter Care Teams Team MemberRelationshipSpecialtyStart DateEnd Date Amadou Millan MD [address] [place] [address] PCP - GeneralInternal Jylqqyht94/15/25documented as of this encounter
--- OUTSIDE RECORDS SUMMARY | 2025-06-01 14:57 | XMS_ITS | Encounter Summary ---
Author Organization [facility] Address [address] [place] [address] Care Team Providers Care Scaffold Setter Name Role Phone Amadou Millan MD Primary Care Provider [phone] Encounter Details DateTypeDepartmentCare Team (Latest Contact Info)Euzcshvhzpk84/03/2025Bamboo flowsheet [facility] [address] [place] [address] Cher Madrigal PA [address] [place], [facility] Social History Tobacco UseTypesPacks/DayYears UsedDateSmoking Tobacco: Never Assessed CommentsNoSex and Gender InformationValueDate RecordedSex Assigned at BirthNot on fileLegal OwsAlnnzw95/15/2023 6:34 PM EDTGender IdentityNot on fileSexual OrientationNot on filedocumented as of this encounter Plan of Treatment Not on file documented as of this encounter Visit Diagnoses Not on filedocumented in this encounter Care Teams Team MemberRelationshipSpecialtyStart DateEnd Date Amadou Millan MD [address] [place] [address] PCP - GeneralInternal Lrxpknic61/15/25documented as of this encounter
--- OUTSIDE RECORDS SUMMARY | 2025-06-01 14:57 | XMS_ITS | Clinical Summary ---
Author Organization [facility] Address [address], [address] [place] [address] Care Team Providers Care Archery Instructor Name Role Phone Amadou Millan MD Primary Care Provider [phone] Allergies Active AllergyReactionsCriticalityNoted DateCommentsAspirinOther (See Comments) 12/23/2016 States mother has severe reaction to aspirin so she has avoided it herself. Medications MedicationSigDispense QuantityRefillsLast FilledStart DateEnd DateStatus topiramate (TOPAMAX) 25 MG tablet Indications:Migraine without aura and without status migrainosus, not intractableTake 1 tablet by mouth nightly 60 tablet 5Active xkjpolzlct-satrvwosdpbka-injwkmbs (FIORICET, ESGIC) 50-325-40 MG per tablet Indications:Migraine without aura and without status migrainosus, not intractableTake 1 tablet by mouth every 6 hours as needed for Headaches 60 tablet 5Active busPIRone (BUSPAR) 7.5 MG tablet Indications:AnxietyTAKE 1 TABLET BY MOUTH TWICE DAILY 180 tablet 5Active Active Problems ProblemNoted DateDiagnosed DateAnxiety noylicdw64/01/2021holecystitis with cholelithiasis Encounters DateTypeDepartmentCare XinkXpmdgpcvkzw46/09/2025Ref[facility] [address] [place] [address] Amadou Millan MD Medication Snkmjk4603/27/2025 11:30 AM EDTOffice Visit [facility] [address] [place] [address] Amadou Millan MD Migraine without aura and without status migrainosus, not intractable (Primary Dx)03/27/2025bstract [facility] [address] [place] [address] Amadou Millan MD from Last 3 Months Immunizations ImmunizationAdministration DatesNext DueTDaP, ADACEL (age 10y-64y), BOOSTRIX (age 10y+), IM, 0.5mL02/24/2012 Family History Medical HistoryRelationNameCommentsNo Known ProblemsFatherOtherMaternal Aunt FACTOR FIVEOtherMaternal GrandmotherFACTOR 12OtherMaternal Great Grandmother FACTOR SEVENNo Known ProblemsMotherOtherOtherGreat Great GrandmaFACTOR NINE RelationNameStatusCommentsFatherAliveMaternal AuntMaternal GrandmotherMaternal Great GrandmotherMotherAliveOtherGreat Great Grandma Social History Tobacco UseTypesPacks/DayYears UsedDateSmoking Tobacco: NeverSmokeless Tobacco: Never Tobacco Cessation:Counseling Given: Not Answered Alcohol UseStandard Drinks/WeekCommentsNo0 (1 standard drink = 0.6 oz pure alcohol)AUDIT-CAnswerDate RecordedQ1: How often do you have a drink containing alcohol?Never07/22/2024Q2: How many drinks containing alcohol do you have on a typical day when you are drinking?Patient does not drink07/22/2024Q3: How often do you have six or more drinks on one occasion?Never07/22/2024Overall Financial Resource Strain (CARDIA)AnswerDate RecordedHow hard is it for you to pay for the very basics like food, housing, medical care, and heating?Not hard at all 01/02/2023HQ-2AnswerDate RecordedPHQ-9 Total Qhqja769PRAPARE - TransportationAnswerDate RecordedLack of Transportation (Medical)Not on file 01/02/2023In the past 12 months, has lack of transportation kept you from meetings, work, or from getting things needed for daily living?No01/02/2023 Housing Stability Vital SignAnswerDate RecordedUnable to Pay for Housing in the Last YearNot on file01/02/2023Number of Places Lived in the Last YearNot on file 01/02/2023In the last 12 months, was there a time when you did not have a steady place to sleep or slept in ashelter (including now)?No01/02/2023Housing Stability Vital SignAnswerDate RecordedIn the last 12 months, was there a time when you were not able to pay the mortgage or rent on time?No03/27/2025In the past 12 months, how many times have you moved where you were living? At any time in the past 12 months, were you homeless or living in a intermediate (including now)?No03/27/2025Hunger Vital SignAnswerDate RecordedWithin the past 12 months, you worried that your food would run out before you got the money to buymore.Never true03/27/2025Within the past 12 months, the food you bought just didn't last and you didn't have money to get more.Never true03/27/2025PRAPARE - TransportationAnswerDate RecordedIn the past 12 months, has lack of transportation kept you from medical appointments or from getting medications?No 03/27/2025In the past 12 months, has lack of transportation kept you from meetings, work, or from getting things needed for daily living?03/27/2025HC UtilitiesAnswerDate RecordedIn the past 12 months has the [facility], gas, oil, or water company threatened to shut off services in your home?03/27/2025 Interpersonal Safety Domain Source: IP Abuse ScreeningAnswerDate Recorded Physical pjyozSnzpbf52/24/2024Verbal ltnjfJfnunl78/24/2024Emotional abuseDenies 07/22/2024Financial pfryyTdlgqi59/24/2024Sexual dcqynOprcjm47/24/2024Education AnswerDate RecordedWhat is the highest level of school you have completed or the highest degree you have received?High school fntivjwd44/02/2021Comments NoSex and Gender InformationValueDate RecordedSex Assigned at BirthNot on file Legal CmcAtuzsj51/10/2013 10:09 AM ESTGender IdentityNot on fileSexual OrientationNot on file Last Filed Vital Signs Vital SignReadingTime TakenCommentsBlood Sekqynag449/7708 11:23 AM EDT Qhxcp7977 11:23 AM RUEKfhvnfbmfyd08.9 ??C (98.5 ??F)07/22/2024 1:54 AM ESTRespiratory Rhcv733603/27/2025 11:23 AM EDTOxygen Dlpshzhsva43%03/27/2025 11:23 AM EDTInhaled Oxygen Concentration--Lyhllh50.9 kg (220 lb 4.8 oz)07/22/2024 1:54 AM ZXAIjolqu686 cm (5' 3 )03/27/2025 11:23 AM EDTBody Mass Index39.02109/22/2023 1:54 AM EST Plan of Treatment Health MaintenanceDue DateLast DoneCommentsHIV otizwy6907/19/2006Hepatitis C svpfou8507/19/2009Hepatitis B vaccine (1 of 3 - 19+ 3-dose series)2010Pap smear2012Cervical cancer bfaezj3107/19/2021HPV (without or with Pap) 2021TaP/Tdap/Td vaccine (2 - Td or Tdap)Flu vaccine (#1)02/27/2025OVID-19 Vaccine ( season)2025Depression Screen 608/, 03/27/2025HPV vaccine (No Doses Required)Completed Hepatitis A vaccineAged OutNo longer eligible based on patient's age to complete this topicHib vaccineAged OutNo longer eligible based on patient's age to complete this topicMeningococcal (ACWY) vaccineAged OutNo longer eligible based on patient's age to complete this topicMeningococcal B vaccineAged OutNo longer eligible based on patient's age to complete this topicPneumococcal 0-49 years VaccineAged OutNo longer eligible based on patient's age to complete this topic Polio vaccineAged OutNo longer eligible based on patient's age to complete this topicVaricella vaccineDiscontinued Medical Devices ImplantedTypeAreaManufacturerDevice IdentifierShelf Expiration DateModel / Tanner / Edy Hem-O-Coral Implanted:Qty: 1 on 01/08/2019 by Chad Felix MD at [facility]12/24/[id number] / / [id number] Insurance Advance Directives * Full Code (Latest Code Status on File) Date ActivatedDate InactivatedComments01/08/2019 12:37 PM01/08/2019 5:52 PM * Full Code Date ActivatedDate InactivatedComments01/08/2019 8:53 AM01/08/2019 12:37 PM Care Teams Team MemberRelationshipSpecialtyStart DateEnd Date Amadou Millan MD [address] [place] [address] PCP - GeneralInternal Medicine09/28/20
--- OUTSIDE RECORDS SUMMARY | 2025-06-01 14:57 | XMS_ITS | Clinical Summary ---
Author Organization [facility] Address [address] [place] [address] Care Team Providers Care Recruiting Operations Consultant Name Role Phone Amadou Millan MD Primary Care Provider [phone] Allergies Active AllergyReactionsCriticalityNoted KpyjQmvwdxugCxwumeePfcms48/27/2017 Other Reaction(s): Other (See Comments) States mother has severe reaction to aspirin so she has avoided it herself. Medications No known medications Encounters DateTypeDepartmentCare LgivKapsnmckeka86/03/2025 2:20 PM [place] [id number] Cher Madrigal PA Postoperative visit; S/P D&C (status post dilation and curettage); Miscarriage ([facility])5Bamboo flowsheet [facility] [place] [address] Cher Madrigal PA 05/13/2025 2:00 PM EDTAncillary Procedure [facility] [place] [address] Missed menses; Positive urine test ([facility])5Clinisync Result Encounter [facility] Unsolicited Jack Santillan DO 05/07/2025[place] [address] Jack Santillan DO from Last 3 Months Social History Tobacco UseTypesPacks/DayYears UsedDateSmoking Tobacco: Never Assessed CommentsNoSex and Gender InformationValueDate RecordedSex Assigned at BirthNot on fileLegal GteGrhewm88/15/2023 6:34 PM EDTGender IdentityNot on fileSexual OrientationNot on file Last Filed Vital Signs Vital SignReadingTime TakenCommentsBlood Kbljprue159/7211 2:16 PM EST Pulse--Temperature--Respiratory Rate--Oxygen Saturation--Inhaled Oxygen Concentration--Fhcksa82.3 kg (199 lb)06/01/2025 2:16 PM ESTHeight--Body Mass Index-- Plan of Treatment Not on file Procedures Procedure NamePriorityDate/TimeAssociated DiagnosisCommentsUS OB TRANSVAGINAL Wmtpubz6605/13/2025 3:10 PM EDT Missed menses Positive urine test ([facility]) OB EBRECAFQRVAX65/09/2025 2:50 PM EDT from Last 3 Months Results * OB transvaginal (05/13/2025 3:10 PM EDT)Anatomical RegionLateralityModality BodyUltrasoundSpecimen (Source)Anatomical Location / LateralityCollection Method / VolumeCollection TimeReceived Time05/14/2025 12:52 PM EDT Impressions 05/14/2025 1:18 PM EDT No evidence of cardiac activity, single pole and gestational sac. Correlate with beta hCG findings, CANVAS SHRINKER consultation. TRANSCRIBED BY: ? ELECTRONICALLY SIGNED BY: Naren Malik MD Narrative 05/14/2025 1:18 PM EDT FINDINGS: Comparison made with prior examination of May 07, 2025. Persistent intrauterine gestational sac with a limited decidual reaction and a single pole, crown rump length 3 mm which would suggest a 6 week and 0 day gestational age. No cardiac activity however is identified. ??Overall size demonstrates minimal change from 6 days [...] and gestational sac.Correlate with beta hCG findings, [facility]VAS SHRINKER consultation. TRANSCRIBED BY: ELECTRONICALLY SIGNED BY: Naren Malik MD Authorizing ProviderResult TypeResult StatusCorey Justin DOIMG OB US PROCEDURES Final Result * US OB TRANSVAGINAL (05/07/2025 2:50 PM EDT)Anatomical RegionLateralityModality OtherSpecimen (Source)Anatomical Location / LateralityCollection Method / VolumeCollection TimeReceived Time05/07/2025 2:50 PM EDT Narrative 05/07/2025 2:53 PM EDT [facility] ?[address] ? [place] [address] ? Ultrasound Report ? Signed ? Patient: MARGRETSHERLYN ?MR#: [id number] ?? : 1990 ?Acct:[id number] ?? Age/Sex: 34 / F ?ADM Date: 05/07/25 ?? Loc: US ? Attending Dr: Jack Santillan D.O. ? Ordering Physician: Jack Santillan D.O. ?? Date of Service: 05/07/25 ?? Procedure(s): US OB transvaginal ?? Accession Number(s): [id number] ? cc: Jack Santillan D.O.; Physician,Non-Staff M.D. ? [facility] ? [facility]. [facility] [place] ? [place] [address] ? Patient Name: ?? SHERLYN ??MARGRET ? MRN: [id number] ? date: 1990 ?Sex: F ?? Assigned Patient Location: US ?? Current Patient Location: US ?? Accession/Order Number: [id number] ?? Exam Date: 05/07/2025 ??13:58 ?Report Date: 05/07/2025 ??14:50 ? At the request of: ?? JACK ??JUSTIN ??DO ? Procedure: ??US OB transvaginal ? OB ultrasound. ? Reason for exam:Positive urine test. ? Comparison:None ? Technique: Transvaginal imaging of the gravid uterus was obtained. ? Findings: ? Gestational sac is seen within the endometrial canal with pole noted ?? measuring 5 mm corresponding to a gestational age of 6 weeks 1 day. ??No ?? heart rate is identified. ??MONICO 12/15/2025. ??A small adjacent subchorionic ?? hemorrhage is present measuring 2.1 cm. ??Both ovaries are identified and ?? appear unremarkable with a corpus luteum involving the left ovary. ? US/US OB transvaginal ?? Impression: ? Gestational sac is seen within the endometrial canal with pole noted ?? measuring 6 weeks 1 day by CRL. ??MONICO 12/15/2025. ??No heart rate is ?? identified. ??Correlation with beta-hCG trend repeat ultrasound is suggested to ?? confirm viability ? Impression dictated by: Naren Dias Jr., D.O. ??05/07/2025 2:50 PM ? Dictation Location: [place] [address] ? Electronically authenticated by: [id number] ??Y ?? Date: 05/07/2025 ??14:50 ? Dictated By: ?Naren Dias M.D. ? Signed By: ?05/07/25 1453 ? DD/ 1450 ? TD/TT: ? Social Sciences Research Scientist: Procedure Note Radiology, Radiologist, MD - 05/07/2025 [place] [address] Ultrasound Report Signed Patient: SHERLYN WISEMR#: [id number] : 1990Acct:[id number] Age/Sex: 34 / FADM Date: 05/07/25 Loc: US Attending Dr: Jack Santillan D.O. Ordering Physician: Jack Santillan D.O. Date of Service: 05/07/25 Procedure(s): US OB transvaginal Accession Number(s): [id number] cc: Jack Santillan D.O.; Physician,Non-Staff MKerri The [address] [address] Patient Name: SHERLYN WISE MRN: [id number] date: 1990 Sex: F Assigned Patient Location: [place] Current Patient Location: [place] Accession/Order Number: [id number] Exam Date: 05/07/2025 13:58 Report Date: 05/07/2025 [...] Jr., D.O. 05/07/2025 2:50 PM Dictation Location: [place] [address] Electronically authenticated by: [id number] Y Date: 4:50 Dictated By: Naren Dias M.D. Signed By:05/07/25 1453 DD/ 1450 TD/TT: Social Sciences Research Scientist: Authorizing ProviderResult TypeResult StatusCorey Justin DOCLINISYNC IMAGINGFinal Result from Last 3 Months Insurance Care Teams Team MemberRelationshipSpecialtyStart DateEnd Date Amadou Millan MD [address] [place] [address] PCP - GeneralInternal Tuxqffiy95/15/25
== END 2025-06-01 14:53 | disposition home or self-care (01) ==
PROVIDERS: PCP Internal Medicine; Visit Provider Physician Assistant
DX: O03.9 Complete or unspecified spontaneous abortion without complication (principal); Z98.890 Other specified postprocedural states
CPT/HCPCS: 36415; 84702